=== PATIENT | male | born 1995 | race Two or more races ===

== ENCOUNTER 2019-08-31 13:31 | Emergency (ER) | payer OTHER ==
[~2019-08-31] VITALS: Ht 170.2 cm; Wt 45.4 kg
[2019-08-31 13:38] VITALS: BP 163/74
--- NOTE | 2019-08-31 14:13 | NUR ---
at bedside for eval.
[2019-08-31] MEDS ORDERED: ALPRAZOLAM 0.5 MG TABLET PO ONE (14:30)
[2019-08-31] MEDS ORDERED: ALPRAZOLAM 0.5 MG TABLET ONE (14:31)
--- NOTE | 2019-08-31 14:52 | NUR ---
Patient discharged to home in stable condition. Written and verbal after care instructions given. Patient verbalizes understanding of instruction.
== END 2019-08-31 14:52 | disposition home or self-care (01) ==
LOC: EDBD 13:35 → ER 13:35
DX: F45.8 Other somatoform disorders (principal); J34.0 Abscess, furuncle and carbuncle of nose; J45.909 Unspecified asthma, uncomplicated; Z90.89 Acquired absence of other organs
CPT/HCPCS: 71045-TC